=== PATIENT | female | born 1950 | race Caucasian/White ===

== ENCOUNTER → 2019-10-27 | Outpatient (CLI) | payer MEDICARE, BC ==
[2019-10-27 19:37] LABS: C DIFFICILE GDH NEGATIVE (NEGATIVE)
== END ==
LOC: LAB 17:20
PROVIDERS: ATTEND Internal Medicine
DX: R19.7 Diarrhea, unspecified (principal)
CPT/HCPCS: 36415; 87045; 87177; 87205; 87324; 87449